=== PATIENT | male | born 1970 | race Two or more races ===

== ENCOUNTER 2025-04-21 14:24 | Emergency (ER) | payer MEDICAID, SELFPAY ==
[2025-04-21 14:26] VITALS: BMI 27.4
[2025-04-21 14:31] VITALS: BP 200/122; PULSE 62; RESP 16; TEMP 36.8; O2SAT 97; BMI 28.0
--- NOTE | 2025-04-21 14:31 | XR_ITS ---
Examination: CT abdomen with intravenous contrast CT pelvis with intravenous contrast 2-D coronal reconstructions 2-D sagittal reconstructions Date and time of exam:April 21, 2025 1814 hours INDICATIONS: Lower abdominal pain and diarrhea beginning 2 days ago. CTDI: vol (mGy) 6.98 DLP: (mGycm) 438 Technique: Multiple axial sections of the abdomen and pelvis have been obtained. 64 slice high-resolution scanner used. 3 mm axial sections have been obtained, post intravenous injection 60 cc Isovue 2-D sagittal, coronal reconstructions obtained. Low dose protocols were performed. One or more of the following dose reduction techniques were used; automated exposure control, adjustment of the mA and/or KV according to patient size, use of iterative reconstruction technique. Findings: No focal liver or splenic lesions No gallstones No pancreatic or adrenal mass No renal or ureteral calculi No hydronephrosis Aorta normal size The appendix is minimally thickened but no periappendiceal inflammatory change Colonic diverticulosis Acute diverticulitis distal descending colon extending to the junction with the sigmoid colon No peridiverticular abscess Intact urinary bladder IMPRESSION: Acute diverticulitis distal descending colon extending to the junction with the sigmoid colon No peridiverticular abscess
[2025-04-21 15:31] LABS: Collection Type, Urine Voided
[2025-04-21 15:33] LABS: Basophils % (Auto) 0 % (0-2.5); Eosinophils # (Auto) 0.1 Thou/mm3 (0.0-0.5); Eosinophils % (Auto) 1 % (0-10); Hematocrit 46.2 % (41.0-53.0); Hemoglobin 16.5 g/dL (13.5-16.0); Immature Granulocytes % (Auto) 0 % (0-0); Immature Granulocytes Auto 0.02 Thou/mm3 (0.00-0.00); Lymphocytes # (Auto) 1.5 Thou/mm3 (1.0-4.8); Lymphocytes % (Auto) 16 % (10-50); Mean Corpuscular HGB Conc 35.7 g/dl (31.0-37.0); Mean Corpuscular Hemoglobin 32.5 pg (25.0-35.0); Mean Corpuscular Volume 91 fL (80-100); Monocytes # (Auto) 0.8 Thou/mm3 (0.0-0.8); Monocytes % (Auto) 9 % (0-12); Neutrophils # (Auto) 6.9 Thou/mm3 (1.8-7.7); Neutrophils % (Auto) 74 % (37-80); Nucleated Red Blood Cell % 0 /100 WBC (0); Platelet Count 223 Thou/mm3 (140-440); RDW Standard Deviation 40.6 fL (35.1-43.9); Red Blood Count 5.08 Miln/mm3 (4.50-5.90); White Blood Count 9.4 Thou/mm3 (3.8-10.6)
[2025-04-21 15:51] LABS: Alanine Aminotransferase 26 U/L (10-49); Albumin, Serum 4.4 gm/dL (3.5-5.0); Albumin/Globulin Ratio 1.5 (1.2-2.2); Alkaline Phosphatase 78 U/L (46-116); Anion Gap 6 (7-16); Aspartate Amino Transferase 29 U/L (0-34); BUN/Creatinine Ratio 9 Ratio (12-20); Bilirubin,Total 0.9 mg/dL (0.3-1.2); Blood Urea Nitrogen 8 mg/dL (9-23); Calcium 9.3 mg/dL (8.3-10.6); Calcium (Corrected) 9.3 mg/dL (8.5-10.1); Carbon Dioxide 29.1 mMol/L (20.0-31.0); Chloride 104 mMol/L (98-107); Creatinine (Component) 0.9 mg/dL (0.6-1.3); Estimated Creatinine Clearance 93.7 mL/min (>60); Globulin 2.9 gm/dL (2.3-3.5); Glucose 92 mg/dL (74-106); Lipase 47 U/L (12-53); Osmolality,Calculated 275 (275-295); Potassium 4.8 mMol/L (3.4-5.1); Sodium 139 mMol/L (136-145); Total Protein 7.3 gm/dL (5.7-8.2); eGFR > 60 See Note
[2025-04-21 16:02] VITALS: BP 182/107; BP 202/116; PULSE 52; RESP 18; TEMP 37; O2SAT 98
[2025-04-21 16:19] VITALS: BP 154/103; PULSE 55; RESP 18; TEMP 37.1; O2SAT 99
[2025-04-21 16:24] LABS: Bilirubin,Urine Negative (Negative); Blood,Urine Negative (Negative); Calcium Oxalate Crystals,Urine 4+; Clarity,Urine Clear (Clear/Hazy); Color,Urine Yellow (Lt Yel-Yel); Glucose, Urine Negative (Negative); Ketones,Urine Negative (Negative); Leukocyte Esterase,Urine Negative (Negative); Nitrite,Urine Negative (Negative); PH,Urine 5.5 (5.0-7.0); Protein,Urine Trace (Neg - Trace); RBC,Urine 7 /hpf (0-3); Specific Gravity,Urine 1.039 (1.001-1.035); Squamous Epithelial Cell,Urine 1 /hpf (0-5); WBC,Urine 1 /hpf (0-5)
[2025-04-21] MEDS: MORPHINE SULF INJ 10 MG/ML VIAL 4 MG IVP (17:43)
[2025-04-21 17:49] VITALS: BP 161/96; PULSE 67; RESP 16; TEMP 37; O2SAT 97
[2025-04-21 19:14] VITALS: BP 143/94; PULSE 69; RESP 18; TEMP 37; O2SAT 96
--- NOTE | 2025-04-21 19:42 | EDNOTE_ITS ---
ED Abdominal Pain RME/HPI General Chief Complaint: Abdominal Pain Stated complaint: SEVERE LOWER ABD PAIN 08/08; HX DIVERTICULOSIS Time seen by provider: 04/21/25 14:31 Arrival date/time: 04/21/25 14:24 Limitations: no limitations RME / HPI RME / HPI narrative: 54-year-old male is here today with left-sided abdominal pain over the past 1 to 2 days. He states he has remote history of diverticulitis. He has no primary care provider and has no current GI doctor. He has no chronic medical illness. Denies any surgical history. Related Data Previous Rx's ?Medication ?Instructions ?Recorded hydrocodone 5 mg-acetaminophen 325 1 tab PO Q8H PRN pa in #10 tabs 04/21/25 mg tablet levofloxacin 750 mg tablet 750 mg PO Q24H 5 days #5 ta bs 04/21/25 Allergies Allergy/AdvReac Type Severity Reaction Status Date / Time No Known Allergies Allergy Verified 04/21/25 14:28 Review of Systems Review of Systems Systems Reviewed: All systems reviewed, normal except as documented ED Exam General Limitations: Present no limitations General appearance: Present alert and in no apparent distress Head Head exam: Present atraumatic Eye Eye exam: Present normal appearance, PERRL and EOMI ENT ENT exam: Present normal exam, normal oropharynx and mucous membranes moist Neck Neck exam: Present normal inspection, full ROM and trachea midline Chest Chest inspection: Present normal inspection and symmetric chest wall rise Respiratory Respiratory exam: Present normal lung sounds bilaterally Cardiovascular Cardiovascular exam: Present regular rate, normal rhythm and normal heart sounds Abdominal Exam Abdominal exam: Present soft and normal bowel sounds Extremities Exam Extremities exam: Present normal inspection Back Exam Back exam: Present normal inspection and full ROM Neurological Exam Neurological exam: Present alert and oriented X3 Psychiatric Psychiatric exam: Present normal affect and normal mood Skin Skin exam: Present warm, dry, intact and normal color Course Quality Measures none Orders Category Date Time Status CT Screening NOW Care 04/21/25 14:32 Active Insert IV NOW Care 04/21/25 17:[address] abdomen pelvis w con Stat Exams 04/21/25 14:31 Completed CBC Stat Lab 04/21/25 15:15 Completed CMP [Comprehensive Metabolic Panel] Stat Lab 04/21/25 15:15 Completed Lipase Stat Lab 04/21/25 15:15 Completed UA [Urinalysis] Stat Lab 04/21/25 15:18 Completed Ketorolac Inj [Toradol Inj] Med 04/21/25 14:33 Discontinued 15 mg IVP X1 ONE Levofloxacin [Levaquin] Med 04/21/25 19:41 Once 750 mg PO X1 ONE Morphine Inj Med 04/21/25 14:34 Discontinued 4 mg IVP X1 ONE hydrALAZINE INJ [Apresoline Inj] Med 04/21/25 14:33 Discontinued 10 mg IVP X1 ONE Vital Signs Vital signs: Vital Signs Temperature 98.3 F 04/21/25 14:31 Pulse Rate 62 04/21/25 14:31 Respiratory Rate 16 04/21/25 14:31 Blood Pressure 200/122 H 04/21/25 14:31 Pulse Oximetry (%) 97 04/21/25 14:31 Oxygen Delivery Method Room Air 04/21/25 14:31 Abdominal Pain MDM MDM Narrative MDM Narrative:: 54-year-old male is here today with left-sided abdominal pain over the past 1 to 2 days. He states he has remote history of diverticulitis. He has no primary care provider and has no current GI doctor. He has no chronic medical illness. Denies any surgical history. When patient presented, he was hypertensive and hydralazine was ordered. However his blood pressure improved and this was not provided. Patient's workup was initiated and he was found to have an acute diverticulitis. He is given a dose of Levaquin. We discussed follow-up care. Patient states he has been living in [place], [place], for just over a year now. He often returns to [facility] where he has a ranch. However he will be staying here for a while. I do believe the patient stable for outpatient discharge. He will Mikey to Dr. Julian of gastroenterology for follow-up. He is advised to also obtain a primary care provider. He will co ntinue Levaquin as prescribed. Follow-up with GI. Return to the emergency room anytime for any worsening or emergent changes. Patient data External records reviewed:: None Clinical information provided by:: patient Social determinants that could affect healthcare access:: none Patient has the following chronic illnesses:: n/a How is presenting disease/condition affected by chronic disease/condition?: no chronic disease Evaluation data The following diagnostics were reviewed and interpreted by me:: lab results (No leukocytosis, H&H is stable. 7 erythrocytes in the urine, no leukocytes. He has no urinary changes.) and radiology exam(s) (Acute diverticulitis) Lab and/or radiology exams considered but not ordered:: n/a Interpretation Summary: Acute diverticulitis Medications / Prescriptions Medications or Prescriptions considered but not ordered:: n/a Medication administrations:: Medication Administration History Levofloxacin (Levofloxacin 250 Mg Tablet) 750 mg PO X1 ONE Stop: 04/21/25 19:42 Discontinued Medications Hydralazine HCl (Hydralazine Inj 20 Mg/Ml Vial) 10 mg IVP X1 ONE Stop: 04/21/25 14:34 Last Admin: 04/21/25 17:54 Dose: Not Given Documented By: PORTER Non-Admin Reason: Change of Condition Ketorolac Tromethamine (Ketorolac Inj 30 Mg/Ml Vial) 15 mg IVP X1 ONE Stop: 04/21/25 14:34 Last Admin: 04/21/25 17:54 Dose: Not Given Documented By: PORTER Non-Admin Reason: Cancelled by Provider Morphine Sulfate (Morphine Sulf Inj 10 Mg/Ml Vial) 4 mg IVP X1 ONE Stop: 04/21/25 14:35 Last Admin: 04/21/25 17:43 Dose: 4 mg Documented By: PORTER See above Consultations Consultation(s) initiated? (list below): No Diagnosis Differential diagnosis abdominal pain: abdominal pain, acute appendicitis and calculus of kidney Most likely diagnosis given after review of the tests above:: n/a Admission Indicated Admission indicated?: not indicated Admission Request Was there a request for admission?: No Disposition Plan Disposition Plan: Discharge Discharge Attestation Discharge Attestation: The patient and all family members were given an opportunity to ask questions and understood the discharge instructions. Discharge instructions specifically effects, indications for sooner follow up or return to the emergency department, and the expected course of current diagnosis. Patient condition: Stable Discharge Plan Plan Patient Disposition: Home w/HOME HEALTH Prescriptions/Referrals Prescriptions/Med Rec: New levofloxacin 750 mg tablet 750 mg PO Q24H 5 Days Qty: 5 0RF hydrocodone-acetaminophen 5-325 mg tablet 1 tab PO Q8H MDD 3 PRN (Reason: pain) Qty: 10 0RF Referrals: Shirin Julian MD [Physician] - In 1 week No Primary/Family,Physician [Primary Care Provider] - In 1 week Problem List Clinical Impression: Diverticulitis Patient/Caregiver Discharge Instructions Education Materials: Diverticulosis Diverticulitis, ED Diverticulitis Additional Instructions: Use the provided medications as prescribed. Please contact gastroenterology tomorrow to schedule follow-up appointment. Please obtain a primary care provider additionally. Return to the emergent anytime for any worsening in or emergent changes. Print Language: Hong Konger Stand Alone Forms: Emma Award Info., Patient Portal Info Letter
[2025-04-21] MEDS: LEVOFLOXACIN 250 MG TABLET 750 MG PO (20:05)
[2025-04-21 20:17] VITALS: BP 167/97; PULSE 87; RESP 17; TEMP 36.7; O2SAT 97
== END 2025-04-21 20:21 | disposition home or self-care (01) ==
PROVIDERS: Physician Assistant Medical; Emergency Provider Family Medicine
DX: K57.32 Diverticulitis of large intestine without perforation or abscess without bleeding (principal)
CPT/HCPCS: 36415; 74177; 80053; 81001; 83690; 85025; 96374; 99285; A4649; J2270; Q9967; A9270